=== PATIENT | male | born 1940 | race Caucasian/White ===

== ENCOUNTER → 2021-06-21 07:21 | Outpatient (REF) | payer OTHER, SELFPAY | LOC: ANHLAB 07:21 | PROVIDERS: PCP Internal Medicine; Visit Provider Nurse Practitioner | DX: C44.219 Basal cell carcinoma of skin of left ear and external auricular canal (principal); C44.311 Basal cell carcinoma of skin of nose | CPT/HCPCS: 88305; 88331 ==